=== PATIENT | female | born 1950 | race Caucasian/White ===

== ENCOUNTER 2021-12-09 01:54 | Emergency (ER) | payer MEDICARE, SELFPAY ==
[2021-12-09 01:55] VITALS: BP 204/81; PULSE 82; RESP 18; TEMP 36.3; O2SAT 97; BMI 26.1
--- NOTE | 2021-12-09 02:12 | EKG12_ITS ---
Test Reason : CP Blood Pressure : / mmHG Vent. Rate : 085 BPM Atrial Rate : 085 BPM P-R Int : 152 ms QRS Dur : 122 ms QT Int : 418 ms P-R-T Axes : 067 -15 092 degrees QTc Int : 497 ms Normal sinus rhythm Left bundle branch block Abnormal ECG Confirmed by KAYLEIGH HERNANDEZ, MYAH ([id number]), editorial director ALEJANDRO HURST ([id number]) on 12/10/2021 10:07:47 AM Referred By: SHILO Confirmed By:MYAH VICTOR MD
--- NOTE | 2021-12-09 02:14 | EDS_ITS ---
HPI History of Present Illness Chief Complaint: Chest Pain Informant: patient Narrative Narrative: Patient presents with a sharp area of chest pain in the left lower anterior rib cage. She states if she moves a certain way it hurts but if she does not move it really does not hurt. When specifically asked, very deep breaths can also bother it. But she does not feel short of breath. No radiation or migration. No nausea vomiting diaphoresis or lightheadedness. She does have high cholesterol and blood pressure. No family history of heart disease before the age of 55. Non-smoker. She does have her sole risk factor for blood clot is that she had a trip to [facility] recently. Her longest segment of driving was 5 hours. She has never had a DVT or PE and has no lower extremity symptoms. She has no known injury but has been bending over doing a lot of gardening recently. But she does that commonly. [facility] Medical History GERD (gastroesophageal reflux disease) Hyperlipemia Hypertension Home Medications atorvastatin 20 mg tablet 20 mg DAILY 12/09/21 [History Last Taken Unknown] lisinopril 10 mg tablet 10 mg DAILY 12/09/21 [History Last Taken Unknown] omeprazole 20 mg capsule,delayed release 20 mg DAILY 12/09/21 [History Last Taken Unknown] Allergy/AdvReac Type Severity Reaction Status Date / Time No Known Allergies Allergy Verified 12/09/21 01:57 Social History Smoking Status: Never smoker ROS ROS ED Constitutional Constitutional ED: Denies chills or fever(s) Eyes Eyes: Denies blurry vision ENT ENT ED: Denies rhinorrhea or sore throat Cardiovascular Cardiovascular: Reports as per HPI Respiratory/Chest Respiratory/Chest: Denies cough, dyspnea or sputum Gastrointestinal Gastrointestinal: Denies nausea or vomiting Musculoskeletal Musculoskeletal: Denies back pain, myalgias or neck pain Integumentary Denies rash Neurologic Neurologic: Denies headache(s), paresthesias or weakness Psychiatric Psychiatric: Denies anxiety Endocrine Endocrinology: Denies polydipsia or polyuria Hematologic/Lymphatic Hematologic/Lymphatic: Denies easy bleeding or easy bruising Allergic/Immunologic Allergic/Immunologic ED: Denies urticaria EXAM Physical Exam Const Vital Signs: 12/09/21 01:55 12/09/21 01:59 12/09/21 02:32 Temperature 97.4 F L Temperature Source Temporal Pulse Rate 82 Respiratory Rate 18 Respiratory Pattern Irregular Blood Pressure 204/81 H Blood Pressure Mean 122 Pulse Ox 97 95 Oxygen Delivery Method Room Air 12/09/21 02:59 12/09/21 03:00 12/09/21 04:57 Temperature Temperature Source Pulse Rate 65 64 64 Respiratory Rate 19 H 16 16 Respiratory Pattern Blood Pressure 204/81 H 151/76 H 173/66 H Blood Pressure Mean 122 101 101 Pulse Ox 98 97 97 Oxygen Delivery Method Room Air Room Air Room Air Positive well nourished General Appearance ED: NAD HEENT Reports moist mucous membranes Eyes General Eye ED: Negative for scleral icterus Neck no JVD Chest Wall inspection of chest normal Chest Narrative: She does have some partially reproducible tenderness in that area. But it is much more reproducible with motion. Patient really cannot lean forward on the bed because it hurts a lot when she tries to lean forward. I am able to assist her up without any difficulty. Resp normal respiratory effort and clear to auscultation bilaterally Cardio regular rate and regular rhythm GI normal to inspection, nondistended, normoactive bowel sounds, soft to palpation and non-tender Palpation: Negative for mass Back/Spine no CVA tenderness Extremity normal to inspection General Extremety ED: Negative for edema, pulses abnormal or tenderness General Extremity: Negative for edema or pulses abnormal Neuro Sensorium / Orientation: awake and alert Psych mental status grossly normal Skin no rashes or lesions noted MDM MDM MDM Narrative Medical decision making narrative: Patient CBC including white count hemoglobin and platelets are normal. D-dimer is negative. Electrolytes are overall unremarkable other than minimal elevations of the chloride and creatinine. Glucose is 107. First troponin is 16. Second troponin is 20. Both of these are well within the normal for a female of less than 54. This patient's story is not consistent with heart disease. She does have a relatively low heart score, but might suspicion for heart disease disease is quite low. Her story is consistent with musculoskeletal pain this is very reproduced with motion. D-dimer is negative. Out of extra precaution, I did repeat a troponin and this is also normal. I do not think patient needs admission. Rest ice [id number] meds should be appropriate. We did discuss follow-up and reasons to return Lab Data Attestation: I reviewed the patient's lab results. Labs: Laboratory Results - last 24 hr 12/09/21 12/09/21 12/09/21 02:00 02:00 02:00 WBC 9.4 RBC 4.43 Hgb 13.7 Hct 41.2 MCV 93.0 MCH 30.9 MCHC 33.3 RDW Std Deviation 43.7 RDW Coeff of Elliott 12.8 Plt Count 334 MPV 10.2 Immature Gran % (Auto) 0.200 Neut % (Auto) 46.9 L Lymph % (Auto) 43.3 H Dent % (Auto) 7.5 Eos % (Auto) 1.8 Baso % (Auto) 0.3 Absolute Neuts (auto) 4.4 Absolute Lymphs (auto) 4.05 Nucleated RBC % 0 D-Dimer Quant (PE/DVT) 0.27 Sodium 141 Potassium 3.8 Chloride 108 H Carbon Dioxide 26.0 Anion Gap 7 BUN 23 H Creatinine 1.22 H Estim Creat Clear Calc 35.99 Est GFR (MDRD) Af Amer 56 L Est GFR (MDRD) Non-Af 46 L BUN/Creatinine Ratio 18.9 Glucose 107 H Calcium 9.5 Troponin I High Sens 16 12/09/21 04:12 WBC RBC Hgb Hct MCV MCH MCHC RDW Std Deviation RDW Coeff of Elliott Plt Count MPV Immature Gran % (Auto) Neut % (Auto) Lymph % (Auto) Dent % (Auto) Eos % (Auto) Baso % (Auto) Absolute Neuts (auto) Absolute Lymphs (auto) Nucleated RBC % D-Dimer Quant (PE/DVT) Sodium Potassium Chloride Carbon Dioxide Anion Gap BUN Creatinine Estim Creat Clear Calc Est GFR (MDRD) Af Amer Est GFR (MDRD) Non-Af BUN/Creatinine Ratio Glucose Calcium Troponin I High Sens 20 Radiography Diagnostic Testing: Clinical Impression(s) from Imaging Studies Chest X-Ray 12/09/21 02:40 IMPRESSION: Degenerative changes, as described above. No demonstrated acute cardiopulmonary process. Electronically Signed: Ainsley Jaramillo MD at 3:27 EDT , EKG Initial EKG: Comments: EKG done for chest pain read by me shows a normal sinus rhythm with overall rate of 85. No ectopy. This is a left bundle branch block pattern. However, there is no significant ST elevation or depression consistent with infarct or ischemia. SC interval is normal. QRS duration and QTc are slightly long. I do not have old for comparison. Discharge Plan Triage Chief Complaint: Chest Pain ED Provider: Bryan Saavedra Dx/Rx/DC Orders Clinical Impression: Left-sided chest pain Instructions: ED Chest Pain, Uncertain Cause Prescriptions: No Action atorvastatin 20 mg tablet 20 mg DAILY Label Comments: TAKE 1 TABLET BY MOUTH EVERY DAY lisinopril 10 mg tablet 10 mg DAILY Label Comments: TAKE 1 TABLET BY MOUTH EVERY DAY omeprazole 20 mg capsule,delayed release(DR/EC) 20 mg DAILY Label Comments: TAKE 1 CAPSULE BY MOUTH EVERY DAY Primary Care Provider: Macie Galvan Referrals: Macie Galvan MD [Primary Care Provider] - 3-5 Days if not improving Disposition Disposition: Home, Self Care
[2021-12-09 02:24] LABS: Absolute Lymphocyte Count 4.05 X10^3/uL (0.83-4.51); Absolute Neutrophil Count 4.4 X10^3/uL (2.0-7.7); Basophil# 0.03 X10^3/uL; Basophil% 0.3 % (0-1); Eosinophil# 0.17 X10^3/uL; Eosinophils% 1.8 % (0-5); Hematocrit 41.2 % (37-47); Hemoglobin 13.7 g/dL (12.0-15.0); Lymphocyte # 4.05 X10^3/ul (0.83-4.51); Lymphocyte % 43.3 % (19-41); Mean Corp Hgb Conc 33.3 g/dL (32-36); Mean Corpuscular Hgb 30.9 pg (27.0-32.0); Mean Platelet Vol. 10.2 fl (6.2-12.0); Monocyte% 7.5 % (0-10); NRBC Flagged by Analyzer 0 % (0-5); Neutrophil # 4.38 X10^3/uL (2.7-7.7); Neutrophil % 46.9 % (47-70); Platelet Count 334 K/mm3 (150-450); RBC Distribution Width CV 12.8 % (11.6-14.6); RBC Distribution Width SD 43.7 fl (35.1-43.9); Red Blood Count 4.43 M/mm3 (4.2-5.4); White Blood Count 9.4 K/mm3 (4.4-11.0)
[2021-12-09 02:30] LABS: D-Dimer Quantitative (DVT/PE) 0.27 FEU/ug/m (0.27-0.49)
[2021-12-09 02:32] VITALS: O2SAT 95
[2021-12-09] MEDS: Aspirin 81 MG TAB.CHEW 324 MG PO (02:35)
[2021-12-09 02:38] LABS: Anion Gap 7 (5-15); BUN 23 mg/dL (7-18); BUN/Creat Ratio 18.9 RATIO (10-20); Calcium,Total 9.5 mg/dL (8.5-10.1); Chloride 108 mmol/L (98-107); Creatinine, Serum 1.22 mg/dL (0.55-1.02); EST Glomerular Filtration Rate 46 mL/min (>60); Est Glom Filt Rate - Afr Amer 56 mL/min (>60); Estimated Creatinine Clearance 35.99 ml/min; Glucose 107 mg/dL (74-106); Potassium 3.8 mmol/L (3.5-5.1); Sodium Level 141 mmol/L (136-145); Troponin-I HS (w/2H Reflex) 16 pg/mL (3.0-54.0)
--- NOTE | 2021-12-09 02:40 | RAD_ITS ---
STUDY: X-RAY CHEST REASON FOR EXAM: Female, 71 years old. Chest pain TECHNIQUE: Single AP portable view of the chest. COMPARISON: None. FINDINGS: The lungs are clear and expanded. There is no demonstrated pleural abnormality. Normal size heart. Normal mediastinum and mich. Normal visualized pulmonary arteries. Normal visualized aortic arch and descending thoracic aorta. There are diffuse degenerative changes of the visualized thoracic spine. There is degenerative osteoarthritis of the bilateral shoulders. There is no demonstrated abnormality of the visualized soft tissue structures of the upper abdomen. RAD/Chest 1 View (Portable) IMPRESSION: Degenerative changes, as described above. No demonstrated acute cardiopulmonary process. Electronically Signed: Ainsley Jaramillo MD at 3:27 EDT ,
[2021-12-09 02:59] VITALS: BP 204/81; PULSE 65; RESP 19; O2SAT 98
[2021-12-09 03:00] VITALS: BP 151/76; PULSE 64; RESP 16; O2SAT 97
[2021-12-09 04:17] LABS: Reflex Troponin-HS? (from REC) Y
[2021-12-09 04:52] LABS: Troponin-I HS 20 pg/mL (3.0-54.0)
[2021-12-09 04:57] VITALS: BP 173/66; PULSE 64; RESP 16; O2SAT 97
[2021-12-09 05:16] VITALS: BP 165/74
== END 2021-12-09 05:16 | disposition home or self-care (01) ==
PROVIDERS: Emergency Provider Emergency Medicine; PCP Family Medicine; Visit Provider Emergency Medicine
DX: R07.9 Chest pain, unspecified (principal); I10 Essential (primary) hypertension; E78.00 Pure hypercholesterolemia, unspecified; K21.9 Gastro-esophageal reflux disease without esophagitis; Z79.899 Other long term (current) drug therapy
CPT/HCPCS: 71045; 80048; 84484; 85025; 85379; 93005; 96360; 99284; J7040; A4216

== ENCOUNTER → 2022-10-09 | Outpatient (CLI) | payer MEDICARE, SELFPAY ==
--- NOTE | 2022-10-09 07:06 | ECHOD_ITS ---
Reason For Study: CAD/ASHD Procedure This was a 2D Doppler, Color Flow transthoracic echocardiogram. Exam performed in department. Left Ventricle Normal LV size. Left ventricular systolic function is normal. The estimated ejection fraction is 60 %. Stage 1 diastolic dysfunction. No regional wall motion abnormalities noted. Right Ventricle Normal RV size. Normal systolic function. Atria Normal left atrium. Normal right atrium. Mitral Valve Normal mitral valve. Mild (1+) eccentric mitral valve insufficiency. Tricuspid Valve Normal tricuspid valve. Mild (1+) tricuspid valve insufficiency. Pulmonary artery systolic pressure is 40 mmHg. Aortic Valve The aortic valve is not well visualized. Pulmonic Valve The pulmonic valve is not well visualized. Great Vessels Normal aortic root. The pulmonary artery is normal size. Normal inferior vena cava. Pericardium/Pleural No pericardial effusion. MMode/2D Measurements & Calculations LVIDd: 3.8 cm IVSd: 0.80 cm Ao root diam: 3.0 cm LVIDs: 2.4 cm LVPWd: 0.88 cm RVDd: 2.8 cm FS: 36.3 % LAV(MOD-bp): 29.9 ml LVAd ap4: 20.2 cm2 SV(MOD-sp4): 29.1 ml LAV(MOD-bp) Indexed: 17.1 ml/m2 LVLd ap4: 7.3 cm LAV(MOD-sp2): 29.4 ml EDV(MOD-sp4): 45.8 ml LAV(MOD-sp4): 29.8 ml EDV(sp4-el): 47.3 ml LVAs ap4: 10.6 cm2 LVLs ap4: 5.9 cm ESV(MOD-sp4): 16.7 ml ESV(sp4-el): 16.3 ml EF(MOD-sp4): 63.6 % EF(sp4-el): 65.6 % SV(sp4-el): 31.0 ml LA A4 area: 13.3 cm2 LA dimension(2D): 3.4 cm RA A4 area: 11.7 cm2 Time Measurements MV dec time: 0.25 sec Doppler Measurements & Calculations MV E max tushar: 83.9 cm/sec Lat Peak E' Tushar: 11.6 cm/sec Med Peak E' Tushar: 9.3 cm/sec MV A max tushar: 104.6 cm/sec E/E' lat: 7.2 E/E' med: 9.0 MV E/A: 0.80 Ao V2 max: 117.5 cm/sec LV V1 max: 94.4 cm/sec PA V2 max: 99.9 cm/sec Ao max P.5 mmHg LV V1 max P.6 mmHg TR max tushar: 298.6 cm/sec TR max P.7 mmHg ECHO/Echo Complete Interpretation Summary Normal LV size. Left ventricular systolic function is normal. The estimated ejection fraction is 60 %. Stage 1 diastolic dysfunction. Pulmonary artery systolic pressure is 40 mmHg. Ordering Physician: Vasile Saxena Referring Physician: HUMERA MURRAY Performed By: Shelby Cheung RDCS
--- NOTE | 2022-10-09 17:07 | STRESSREP ---
Stress Test Report Exercise myocardial perfusion stress test. 72-year-old lady with a history of fatigue and coronary artery disease Stress protocol: Resting EKG demonstrates normal sinus rhythm with a rate of 67 bpm resting blood pressure is 134/70 mmHg. a left bundle branch block pattern was noted. The patient exercised according to the regular Kris protocol for a total duration of 5 minutes and 20 seconds attaining a maximum heart rate of 1 21 bpm which was 82% of maximum predicted heart rate; the maximum workload was 7 metabolic equivalents. At rest there were no ST or T wave changes noted to suggest ischemia and at peak exercise upsloping ST changes only were noted which did not meet the criteria for ischemia. No clinical angina was noted the test was terminated due to the target heart rate being achieved/fatigue. The peak blood pressure was 170/60 mmHg. Rate-pressure product was 19,700. Myocardial perfusion protocol. 11.9 mCi of technetium 99m sestamibi was injected at rest. The patient exercised according to regular Kris protocol for total duration of 5 minutes and 20 seconds and at peak exercise 33.7 mCi of technetium 99m sestamibi was injected stress images were obtained stress and rest images were reconstructed in comparing the short axis vertical long and horizontal long axis. Gated images were also obtained. Perfusion SPECT analysis: Review of the stress images demonstrate normal uptake of tracer noted in all areas of the myocardium there was motion artifact however noted with mildly reduced perfusion noted in the septum consistent with left bundle branch block perfusion pattern.. The resting images similarly demonstrate normal uptake of tracer noted in all areas of the myocardium except for the septum. No areas of reversibility are noted to suggest ischemia no previous infarct was noted. Gated SPECT analysis: The gated ejection fraction is 67%. Conclusion: Probably normal exercise myocardial perfusion stress test at a moderate workload Preserved ejection fraction. Left bundle branch block pattern noted
== END | disposition home or self-care (01) ==
LOC: CVS 07:05
PROVIDERS: PCP Family Medicine; Referring Provider Internal Medicine Cardiovascular Disease; Visit Provider Internal Medicine Cardiovascular Disease
DX: I10 Essential (primary) hypertension (principal); I25.10 Atherosclerotic heart disease of native coronary artery without angina pectoris
CPT/HCPCS: 78452; 93017; 93306; A9500; A4216

== ENCOUNTER → 2023-08-18 | Outpatient (CLI) | payer MEDICARE, SELFPAY ==
--- NOTE | 2023-08-18 11:58 | BI_ITS ---
MAMMOGRAPHY - BILATERAL SCREENING REASON FOR EXAM: Female, 73 years old. Routine annual screening examination. PERTINENT HISTORY: Non-contributory. TECHNIQUE: Digital bilateral breast yudi (3D mammographic acquisition) in the CC and MLO projections. 2-D mediolateral oblique (MLO) and craniocaudad (CC) views of both breasts were obtained. CAD: Full Field Digital Mammography with Computer Added Detection was performed. COMPARISON: Comparison is made with prior outside examination from March 18, 2022. FINDINGS: Breast Composition: The breasts are heterogeneously dense, which may obscure small masses. There are no dominant masses or suspicious calcifications. No other significant abnormalities are identified. There has been no significant change since the prior study. BI/SCRN MAMM (CAD)W/YUDI BILAT IMPRESSION: Stable bilateral screening mammogram. Yearly follow-up mammogram recommended. (A) ASSESSMENT CATEGORY: BIRADS Category 1: Negative. A letter regarding these results will be sent to the patient by the facility within 30 days. Approximately 10% of breast cancers are not detected by mammography. A normal mammogram should not delay biopsy of a clinically suspicious abnormality. [id number] Electronically Signed: Young Reyes MD at 10:36 EDT ,
== END | disposition home or self-care (01) ==
LOC: OPBI 11:57
PROVIDERS: PCP Family Medicine; Referring Provider Family Medicine; Visit Provider Family Medicine
DX: Z12.31 Encounter for screening mammogram for malignant neoplasm of breast (principal)
CPT/HCPCS: 77063; 77067